=== PATIENT | male | born 2000 | race Two or more races ===

== ENCOUNTER 2023-12-21 11:02 | Emergency (ER) | payer OTHER ==
[~2023-12-21] VITALS: Ht 182.9 cm; Wt 135.1 kg
[2023-12-21] MEDS ORDERED: CYCL-838 PO (13:47)
[2023-12-21] MEDS ORDERED: IBU600T PO (13:47)
[2023-12-21 14:17] VITALS: BP 152/99; PULSE 61; RESP 16; TEMP 98.6; O2SAT 97
== END 2023-12-21 14:19 | disposition home or self-care (01) ==
LOC: ER 11:02
DX: S20.219A Contusion of unspecified front wall of thorax, initial encounter (principal); S20.229A Contusion of unspecified back wall of thorax, initial encounter; S60.222A Contusion of left hand, initial encounter; S70.12XA Contusion of left thigh, initial encounter; V89.2XXA Person injured in unspecified motor-vehicle accident, traffic, initial encounter; Y93.89 Activity, other specified; Y92.89 Other specified places as the place of occurrence of the external cause; Y99.8 Other external cause status
CPT/HCPCS: 71045; 72070; 73130

== ENCOUNTER 2025-01-21 15:08 | Emergency (ER) | payer OTHER, MEDICAID ==
[~2025-01-21] VITALS: Ht 182.9 cm; Wt 150.0 kg
[~2025-01-21 15:08] MED LIST: CYCL-838 PO; IBU600T PO
[2025-01-21 15:58] VITALS: BP 139/84; PULSE 85; RESP 18; TEMP 98.4; O2SAT 94
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
[2025-01-21] MEDS: SILVER SULFADIAZINE 1 % TOPICAL CREAM 50GM TOP ONE (16:13)
== END 2025-01-21 16:14 | disposition home or self-care (01) ==
LOC: ER 15:08
DX: T23.172A Burn of first degree of left wrist, initial encounter (principal); S80.11XA Contusion of right lower leg, initial encounter; S20.212A Contusion of left front wall of thorax, initial encounter; V43.52XA Car driver injured in collision with other type car in traffic accident, initial encounter; Y93.89 Activity, other specified; Y92.410 Unspecified street and highway as the place of occurrence of the external cause; Y99.8 Other external cause status
CPT/HCPCS: 10060